=== PATIENT | female | born 2000 | race Caucasian/White ===

== ENCOUNTER 2021-06-24 08:38 | Emergency (ER) | payer SELFPAY ==
[~2021-06-24] VITALS: Ht 162.6 cm; Wt 60.0 kg
[2021-06-24 08:48] VITALS: BP 128/72
[2021-06-24] MEDS ORDERED: ACETAMINOPHEN 325MG TABLET PO ONE (09:15)
[2021-06-24] MEDS ORDERED: TOPUD PO (09:32)
== END 2021-06-24 09:50 | disposition home or self-care (01) ==
LOC: ER 08:59
DX: M79.661 Pain in right lower leg (principal); M79.671 Pain in right foot; G89.11 Acute pain due to trauma; V49.59XA Passenger injured in collision with other motor vehicles in traffic accident, initial encounter; Y93.89 Activity, other specified; Y92.488 Other paved roadways as the place of occurrence of the external cause
CPT/HCPCS: 73590; 73620; 81025; 99284